=== PATIENT | female | born 1970 ===

== ENCOUNTER 2019-01-06 12:13 | Outpatient (CLI) | payer OTHER ==
--- NOTE | 2019-01-06 15:04 | ULT ---
ULTRASOUND RETROPERITONEUM COMPLETE: (RENAL) DATE: 01/06/2019. HISTORY: A 48-year-old female with hematuria. FINDINGS: Right kidney: 11.5 x 5 x 6.5 cm. Left kidney: 12.5 x 4.5 x 4.5 cm. Mild dilatation of right renal collecting system. This persists on the postvoid image. No hydronephrosis of left kidney. Normal appearance of urinary bladder. Bladder volume 155 mL. Postvoid residua: 15 mL. No moderate-sized or large cystic or solid renal mass is identified. IMPRESSION: 1. Minimal/mild right hydronephrosis. 2. Small amount of postvoid residua in the bladder. JN R POS: TPC
== END 2019-01-06 12:14 | disposition home or self-care (01) ==
LOC: BICULT 12:13
PROVIDERS: ATTEND Family Medicine
DX: R31.9 Hematuria, unspecified (principal); N13.30 Unspecified hydronephrosis
CPT/HCPCS: 76770

== ENCOUNTER 2019-01-08 07:59 | Outpatient (CLI) | payer OTHER ==
--- NOTE | 2019-01-08 08:42 | MMO ---
Bilateral MAMMO Bilat Screen [facility]. CLINICAL HISTORY: Patient is 48 years old and is seen for screening. The patient has no family history of breast cancer. The patient has no personal history of cancer. VIEWS: The views performed were: bilateral craniocaudal with tomosynthesis and bilateral mediolateral oblique with tomosynthesis. FILMS COMPARED: The present examination has been compared to prior imaging studies performed at [facility] on 04/28/2013, 06/15/2014, 07/05/2015 and 07/29/2016. MAMMOGRAM FINDINGS: There are scattered fibroglandular densities. There are no suspicious masses, suspicious calcifications, or new areas of architectural distortion. IMPRESSION: THERE IS NO MAMMOGRAPHIC EVIDENCE OF MALIGNANCY. A ROUTINE FOLLOW-UP MAMMOGRAM IN 1 YEAR IS RECOMMENDED. THE RESULTS OF THIS EXAM WERE SENT TO THE PATIENT. ACR BI-RADS Category 1 - Negative MAMMOGRAPHY NOTE: 1. A negative mammogram report should not delay a biopsy if a dominant of clinically suspicious mass is present. 2. Approximately 10% to 15% of breast cancers are not detected by mammography. 3. Adenosis and dense breasts may obscure an underlying neoplasm.
== END 2019-01-08 08:00 | disposition home or self-care (01) ==
LOC: BICMAMMO 07:59
PROVIDERS: ATTEND Family Medicine
DX: Z12.31 Encounter for screening mammogram for malignant neoplasm of breast (principal)
CPT/HCPCS: 77063; 77067

== ENCOUNTER 2019-04-19 14:02 | Outpatient (CLI) | payer OTHER ==
[~2019-04-19 14:02] MED LIST: ISOVUE-370 76%-LOCM 1 ML ONE
--- NOTE | 2019-04-19 14:56 | CT ---
EXAM: CT Abdomen Pelvis W WO con PROVIDED CLINICAL HISTORY: Hematuria COMPARISON: None FINDINGS: The visualized lung bases are free of significant opacity. There is no evidence for urinary tract calculi or hydronephrosis. There is no evidence for renal mass . The delayed images demonstrate no evidence for filling defect involving the renal collecting systems, opacified ureters or urinary bladder. The liver, spleen, pancreas and adrenal glands demonstrate an unremarkable CT appearance. There is no bowel dilatation, inflammatory fat stranding, free fluid or lymph node enlargement appare nt. The osseous structures demonstrate no concerning lytic or blastic lesions. Lumbar spine degenerative changes are seen. IMPRESSION: An etiology for the patient's hematuria is not evident on this examination.
== END 2019-04-19 14:03 | disposition home or self-care (01) ==
LOC: BICCT 14:02
PROVIDERS: ATTEND Urology
DX: N13.39 Other hydronephrosis (principal); R31.9 Hematuria, unspecified; R10.9 Unspecified abdominal pain
CPT/HCPCS: 74178; Q9966

== ENCOUNTER 2020-01-11 08:56 | Outpatient (CLI) | payer OTHER ==
--- NOTE | 2020-01-11 09:26 | MMO ---
Bilateral MAMMO Bilat Screen [facility]. CLINICAL HISTORY: Patient is 49 years old and is seen for screening. The patient has no family history of breast cancer. The patient has no personal history of cancer. VIEWS: The views performed were: bilateral craniocaudal with tomosynthesis and bilateral mediolateral oblique with tomosynthesis. FILMS COMPARED: The present examination has been compared to prior imaging studies performed at [facility] on 06/15/2014, 07/05/2015, 07/29/2016 and 01/08/2019. This study has been interpreted with the assistance of computer-aided detection. MAMMOGRAM FINDINGS: There are scattered fibroglandular densities. There are no suspicious masses, suspicious calcifications, or new areas of architectural distortion. IMPRESSION: THERE IS NO MAMMOGRAPHIC EVIDENCE OF MALIGNANCY. A ROUTINE FOLLOW-UP MAMMOGRAM IN 1 YEAR IS RECOMMENDED. THE RESULTS OF THIS EXAM WERE SENT TO THE PATIENT. ACR BI-RADS Category 1 - Negative MAMMOGRAPHY NOTE: 1. A negative mammogram report should not delay a biopsy if a dominant of clinically suspicious mass is present. 2. Approximately 10% to 15% of breast cancers are not detected by mammography. 3. Adenosis and dense breasts may obscure an underlying neoplasm. Reported by: CODY MARCIAL MD Electonically Signed: [id number]
== END 2020-01-11 08:57 | disposition home or self-care (01) ==
LOC: BICMAMMO 08:56
PROVIDERS: ATTEND Family Medicine
DX: Z12.31 Encounter for screening mammogram for malignant neoplasm of breast (principal)
CPT/HCPCS: 77063; 77067

== ENCOUNTER 2020-06-27 08:28 | Day surgery (SDC) | payer OTHER ==
[2020-06-26 12:32] VITALS: BMI 28.1
[2020-06-27 08:44] LABS: #Eosinphils 0.2 thou/uL (0.0-0.7); #Lymphocytes 2.1 thou/uL (1.20-3.40); #Monocytes 0.4 thou/uL (0.11-0.59); #Neutrophils 3.5 thou/uL (1.40-6.50); %Basophils 0.5 % (0.0-1.0); %Eosinophils 2.7 % (0.0-10.0); %Lymphocytes 33.6 % (21.0-51.0); %Monocytes 7.1 % (0.0-10.0); %Neutrophils 56.1 % (42.0-75.0); Hemoglobin 13.7 g/dL (12.0-16.0); Mean Corpuscular HGB CONC 33.9 g/dL (32.0-36.0); Mean Corpuscular Hemoglobin 31.5 pg (27.0-31.0); Mean Platelet Volume 8.8 fL (7.4-10.4); Platelet Count 210 thou/uL (130-400); RBC Distribution Width 11.6 % (11.5-14.5); Red Blood Cell (RBC) Count 4.35 mill/uL (4.20-5.40); White Blood Cell (WBC) Count 6.3 thou/uL (4.8-10.8)
[2020-06-27 08:49] LABS: INR-International Normal Ratio 0.9; PTT 31.3 sec (22.9-36.1); Prothrombin Time 12.7 sec (12.0-14.7)
[2020-06-27 09:15] LABS: BHCG - Serum Negative (NEGATIVE); Pregs Control Bar Appear? YES (CONTROL BAR)
[2020-06-27 09:16] LABS: Pregs Control Background? CLEAR/WHITE (CLR/WHITE)
[2020-06-27] MEDS ORDERED: Sodium Bicarbonate 2.5 MEQ/5 ML VIAL ONE (09:51)
[2020-06-27 14:11] VITALS: BP 142/74; TEMP 99.3
--- NOTE | 2020-06-27 14:53 | CT ---
CT-GUIDED RENAL BIOPSY RANDOM: DATE: 06/27/2020 HISTORY: 49-year-old female with microscopic hematuria TECHNIQUE: Signed informed consent obtained. Patient placed prone on CT table. Study performed using standard st erile technique and step CT guidance. Skin of left flank prepared and draped in usual sterile fashion. 25-gauge needle used to apply buffered lidocaine superficially and into the posterior latera l abdominal wall. 17-gauge introducer needle incrementally advanced until tip was placed into the superficial portion of the cortex of the left renal lower pole. Stylette was removed, and 18-gauge bi opsy needle was placed in coaxial fashion through the introducer needle. Biopsy gun was fired, yielding a 3.3 cm core tissue sample which was given to the pathologist, who identified at least azucena ral glomeruli on light microscopy. Needle was removed. Patient was then scanned in supine position immediately after the biopsy at 10:59 AM. A follow-up noncontrast CT of abdomen was performed at 1:31 PM. Patient tolerated the procedure very well. No complications. FINDINGS: Step CT images demonstrated distal tip of introducer needle embedded several millimeters into the pos terior cortex of left renal lower pole. Immediate postbiopsy scan shows a small, expected, postbiopsy hematoma in the left inferior perirenal space. Follow-up CT approximately 1.5 hours later shows no interval change. IMPRESSION: Technically successful random CT-guided biopsy of lower pole of left kidney yielding a 3.3 cm long 18 -gauge core tissue sample.
--- NOTE | 2020-06-27 15:32 | CT ---
CT-GUIDED RENAL BIOPSY RANDOM: DATE: 06/27/2020 HISTORY: 49-year-old female with microscopic hematuria TECHNIQUE: Signed informed consent obtained. Patient placed prone on CT table. Study performed using standard st erile technique and step CT guidance. Skin of left flank prepared and draped in usual sterile fashion. 25-gauge needle used to apply buffered lidocaine superficially and into the posterior latera l abdominal wall. 17-gauge introducer needle incrementally advanced until tip was placed into the superficial portion of the cortex of the left renal lower pole. Stylette was removed, and 18-gauge bi opsy needle was placed in coaxial fashion through the introducer needle. Biopsy gun was fired, yielding a 3.3 cm core tissue sample which was given to the pathologist, who identified at least azucena ral glomeruli on light microscopy. Needle was removed. Patient was then scanned in supine position immediately after the biopsy at 10:59 AM. A follow-up noncontrast CT of abdomen was performed at 1:31 PM. Patient tolerated the procedure very well. No complications. FINDINGS: Step CT images demonstrated distal tip of introducer needle embedded several millimeters into the pos terior cortex of left renal lower pole. Immediate postbiopsy scan shows a small, expected, postbiopsy hematoma in the left inferior perirenal space. Follow-up CT approximately 1.5 hours later shows no interval change. IMPRESSION: Technically successful random CT-guided biopsy of lower pole of left kidney yielding a 3.3 cm long 18 -gauge core tissue sample. Transcribed Date/Time: 06/27/2020 3:31 PM
== END 2020-06-27 14:00 | disposition home or self-care (01) ==
LOC: CT 08:28
PROVIDERS: ATTEND Internal Medicine Nephrology
PROC: 0TB13ZX Excision of Left Kidney, Percutaneous Approach, Diagnostic (ICD-10-PCS; principal; 2020-06-27)
DX: R31.9 Hematuria, unspecified (principal); R31.29 Other microscopic hematuria; I12.9 Hypertensive chronic kidney disease with stage 1 through stage 4 chronic kidney disease, or unspecified chronic kidney disease; N18.1 Chronic kidney disease, stage 1; M35.00 Sjogren syndrome, unspecified; E03.9 Hypothyroidism, unspecified; E78.5 Hyperlipidemia, unspecified; Z79.899 Other long term (current) drug therapy
CPT/HCPCS: 36415; 50200; 77012; 84703; 85025; 85610; 85730; 88329